=== PATIENT | female | born 1945 | race Two or more races ===

== ENCOUNTER 2018-08-07 18:31 | Inpatient (IN) | payer SELFPAY ==
[~2018-08-07] VITALS: Ht 160 cm; Wt 53.1 kg
--- NOTE | 2018-08-07 18:40 | NUR ---
PT BIB RA FROM HOME WITH A C/O HYPOGLYCEMIA. PT WAS AT HOME AND WAS FOUND PASSED OUT AND DIAPHORETIC. PT'S CLOTHES ARE WET. PT'S BS IN THE FIELD WAS BELOW 50 AND PT REC'D AN 18G TO THE LAC. PT REC'D D5W 250ML VIA IV AND THEN WAS NOTED TO BE HYPOTENSIVE AND REC'D 1 L NS. PT WAS PLACED ON THE MONITOR AND CONTINUOUS PULSE OX. PT IS 71/45. MD NOTIFIED AND NEW ORDERS WERE GIVEN.
--- NOTE | 2018-08-07 18:40 | NUR ---
PT IS OCCITAN SPEAKING ONLY.
[2018-08-07] MEDS ORDERED: IV NS 0.9% 1,000 ML BAG IV ONE ×2 (19:00→20:00)
[2018-08-07] MEDS ORDERED: ONDANSETRON HCL/PF 4 MG/2 ML VIAL IVP ONE (19:00)
--- NOTE | 2018-08-07 19:00 | NUR ---
ROSETTA, METAL SLITTER IS AT THE BEDSIDE FOR BLOOD DRAW.
[2018-08-07 19:11] LABS: BASOPHILS % (AUTO) 0.3 % (0.0-2.0); EOSINOPHILS % (AUTO) 0.1 % (0.0-6.0); HEMATOCRIT 31 % (33-45); HEMOGLOBIN 9.8 g/dL (11.5-14.8); LYMPHOCYTES # (AUTO) 0.5 /CMM (0.8-4.8); LYMPHOCYTES % (AUTO) 3.5 % (20.0-44.0); MEAN CORPUSCULAR HGB CONC 31 g/dl (31.0-36.0); MEAN CORPUSCULAR VOLUME 86 fL (82-100); MONOCYTES # (AUTO) 0.6 /CMM (0.1-1.30); MONOCYTES % (AUTO) 4.6 % (2.0-12.0); NEUTROPHILS # (AUTO) 11.8 /CMM (1.8-8.9); NEUTROPHILS % (AUTO) 91.5 % (43.0-81.0); PLATELET COUNT (AUTO) 214 /CMM (150-450); RED BLOOD CELL COUNT(AUTO) 3.62 MIL/uL (4.0-5.2); WHITE BLOOD COUNT (AUTO) 12.9 K/uL (4.3-11.0)
--- NOTE | 2018-08-07 19:18 | NUR ---
PT LEFT FOR CT VIA RNEY
--- NOTE | 2018-08-07 19:18 | NUR ---
REPORT GIVEN TO ED, CRYPTOGRAPHIC MACHINE OPERATOR FOR VIOLETA.
--- NOTE | 2018-08-07 19:20 | NUR ---
ASSUMED CARE. RECEIVED REPORT FROM AM SHIFT LILLIANA JOHNSON. PT RESTING QUIELTY, NO ACUTE DISTRESS NOTED, RESP EVEN AND UNLABORED. PT ON CARDIAC MONITORING, CONTINUOUS POX. PT FAMILY MEMBERS AT BEDSIDE. PT AND PT FAMILY AWARE OF HOSPITAL ADMISSION. WILL CONTINUE TO MONITOR PT CLOSELY.
[2018-08-07] MEDS ORDERED: ONDANSETRON HCL/PF 4 MG/2 ML VIAL ONE (19:21)
[2018-08-07 19:22] LABS: CALCIUM, SERUM 8.3 mg/dL (8.5-10.1); CARBON DIOXIDE 17 mmol/L (21-32); CHLORIDE 95 mmol/L (98-107); GLUCOSE 118 mg/dL (74-106); POTASSIUM 3.5 mmol/L (3.5-5.1); SODIUM SERUM 125 mmol/L (136-145); UREA NITROGEN, BLOOD 56 mg/dL (7-18)
[2018-08-07 19:27] LABS: ALANINE AMINOTRANSFERASE 20 U/L (12-78); ALBUMIN 2.1 g/dL (3.4-5.0); ALKALINE PHOSPHATASE 75 U/L (46-116); ASPARTATE AMINOTRANSFERASE 32 U/L (15-37); BILIRUBIN,DIRECT 0.2 mg/dL (0.0-0.2); BILIRUBIN,TOTAL 0.4 mg/dL (0.2-1.0); LIPASE 64 U/L (73-393)
[2018-08-07] MEDS ORDERED: DEXTROSE 50%-WATER 50 ML DISP.SYRIN ONE (20:03)
--- NOTE | 2018-08-07 20:04 | NUR ---
BS-59, ER MD ONEIL AWARE WITH ORDERS RECEIVED. WILL CARRY OUT ORDERS. PT FAMILY MEMBERS REMAINS AT BEDSIDE. Addendum: 08/07/18 at 2017 by ABY PT [email or web address] NO DENIES PAIN OR DISCOMFORT AT THIS TIME.
--- NOTE | 2018-08-07 20:10 | NUR ---
FOOD TRAY PROVIDED TO PT PER ER MD ORDER.
--- NOTE | 2018-08-07 20:25 | NUR ---
CALLED [facility], PAGED HERMINIA GONZALEZ
[2018-08-07] MEDS ORDERED: DEXTROSE 50%-WATER 50 ML DISP.SYRIN IV ONE (20:30)
--- NOTE | 2018-08-07 20:46 | NUR ---
ER SPOKE TO NICOLE GERONIMO REGARDING PT ADMISSION. WILL CALL FOR REPORT.
--- NOTE | 2018-08-07 21:13 | NUR ---
REPORT CALLED TO TELE 1 BRENT LEACH. WILL TRANSPORT PT VIA ACLS PROTOCOL.
[2018-08-07 21:15] VITALS: BP 104/67
--- NOTE | 2018-08-07 21:15 | NUR ---
ARMY RANGER NOTE PATIENT RECEIVED FROM ER WITH FAMILY AT BEDSIDE. PATIENT DENIES SOB/CHEST PAIN. PATIENT HAS 20 G LAC NO S/S OF INFEECTION/ INFILTRATION. BLOOD SUGAR CHECKED 106. PATIENT A/O X 3 WOLOF SPEAKING, BUT FORGETFUL. PATIENT NEEDS CONSISTENT ORIENTATION AND REMINDERS FOR ELIMINATION AND LOCATION. PATIENT NOTED TO HAVE GENERALIZED SCRATCHES ON HER ABDOMEN AND BACK AND A WOUND ON HER LEFT LABIA WITH REDNESS EXTENDING TO THE PERINEAL AREA. PATIENT DENIES PAIN/ DISCOMFORT AT THIS TIME, ONLY WHEN SHE AMBULATES DOES SHE FEEL PAIN IN THE PERINEAL REGION RELATED TO HER WOUND. FAMILY STATES SHE WAS CURRENTLY RECEIVING ANTIBIOTIC FOR THE CELLULITIS THERE. PATIENT AND FAMILY ORIENTED TO UNIT AND USE OF CALL LIGHT. PLAN OF CARE AND PATIENT GOALS DISCUSSED WITH FAMILY AND PATIENT. SAFETY PRECAUTIONS IN PLACE, SIDE RAILS UP X 2 BED ALARM ON. RN WILL CONTINUE TO MONITOR.
[2018-08-07] MEDS ORDERED: ACETAMINOPHEN 325 MG TABLET PO PRN (21:30)
[2018-08-07] MEDS ORDERED: Z GUARD REMEDY 2 OZ OINT TP PRN (21:30)
[2018-08-07] MEDS ORDERED: ONDANSETRON HCL/PF 4 MG/2 ML VIAL IVP PRN (21:30)
[2018-08-07] MEDS ORDERED: IV NS 0.9% 1,000 ML IV PRN (21:30)
[2018-08-07] MEDS ORDERED: MAGNESIUM HYDROXIDE 30 ML UDC PO PRN (21:30)
[2018-08-07] MEDS ORDERED: DEXTROSE 50%-WATER 50 ML DISP.SYRIN IV PRN (21:30)
[2018-08-07] MEDS ORDERED: ZOLPIDEM TARTRATE 5 MG TABLET PO PRN (21:30)
[2018-08-07] MEDS ORDERED: CIPR-262 PO (21:47)
[2018-08-07] MEDS ORDERED: GLIP10TA11 PO (21:49)
[2018-08-07] MEDS ORDERED: HYDR-4384 PO (21:56)
[2018-08-07] MEDS ORDERED: METF-442 PO (21:56)
[2018-08-07] MEDS ORDERED: ONDA4TAB5 PO (21:56)
[2018-08-07] MEDS ORDERED: LEVO100T9 PO (21:56)
[2018-08-07] MEDS ORDERED: METR500T PO (21:56)
[2018-08-07] MEDS ORDERED: ACET1TAB23 PO (21:56)
[2018-08-07] MEDS ORDERED: LISI40TA4 PO (21:57)
[2018-08-07] MEDS: BLOOD SUGAR DIAGNOSTIC 1 EACH STRIP IN SCH (22:09)
[2018-08-08] VITALS (8 sets, daily range): BP systolic 60–132; BP diastolic 46–66
--- NOTE | 2018-08-08 00:30 | NUR ---
MANAGER COMPETITIVE INTELLIGENCE NOTE PATIENT SEEN BY HERMINIA, PATIENT REPORTED CHEST PAIN, STAT TROP ORDERED. TRAFFIC I MANAGER SAW PATIENTS CELLUSLITIS ON LEFT LABIAL FOLD/ GLUTEAL FOLD ORDERED BROAD SPECTRUM ABX.
[2018-08-08] MEDS ORDERED: VANCOMYCIN 1 GM VIAL ONE (01:22)
[2018-08-08] MEDS ORDERED: VANCOMYCIN 0.75 GM in IV NS 0.9% 250 ML IV ONE (01:30)
[2018-08-08] MEDS ORDERED: PIPERACILLIN /TAZOBACTAM 3.375 G in IV D5W 50 ML IV ONE (02:00)
[2018-08-08] MEDS ORDERED: PIPERACILLIN /TAZOBACTAM 3.375 G VIAL IV ONE (02:43)
--- NOTE | 2018-08-08 05:00 | NUR ---
LAST DIPPER NOTE PATIENT NOTED TO HAVE LOW BP. SKIN DIAPHORETIC. PATIENT A/O X 3. NO CHANGE IN LOC. BLOOD SUGAR CHECKED FIRST 21 SECOND TO RECHECK WAS 23. D10% IN 250 ML BOLUS GIVEN. LISA HOPE NOTIFIED, ORDERED TO D/C NS AND CONTINUE WITH D5 0.9% NS AT 75 ML/HR. Addendum: 08/08/18 at 0541 by HANY SEGURA RN Amended: Links added.
--- NOTE | 2018-08-08 05:30 | NUR ---
PROFESSOR OF FORESTRY NOTE COMPLETED D10 BOLUS, WILL RECHECK BLOOD SUGAR AT 0604. PATIENT ENCOURAGED TO EAT AND SNACK THROUGHOUT THE DAY. PATIENT REMAINS A/O X 3, BUT EXTREMELY FORGETFUL
[2018-08-08] MEDS ORDERED: IV D5/ 0.9% NACL 1,000 ML IV PRN (06:00)
[2018-08-08] MEDS ORDERED: PIPERACILLIN /TAZOBACTAM 3.375 G in IV D5W 50 ML IV SCH (06:00)
--- NOTE | 2018-08-08 06:00 | NUR ---
0600 RECHECKED BLOOD GLUCOSE AND OBTAINED 138MG/DL. PATIENT REMAINS AWAKE AND VERBALLY RESPONSIVE. NO S/S OF HYPO/HYPERGLYCEMIA NOTED. AM CARE RENDERED, LARGE BM SOFT IN CONSISTENCY. GOOD PERICARE DONE. TURNED AND REPOSITIONED, CALL LIGHT PLACED WITHIN REACH.
--- NOTE | 2018-08-08 06:10 | NUR ---
0610 RE CHECKED BP AND OBTAINED 74/47. PATIENT ASYMPTOMATIC. IVF INFUSING ORDERED TO RFA WITH NO SIGNS OF INFILTRATION NOTED. WILL CONT. TO MONITOR CLOSELY.
--- NOTE | 2018-08-08 06:25 | NUR ---
CONCESSION CASHIER NOTE BLOOD PRESSURE 79/41. PATIENT REMAINS ASYMPTOMATIC. SKIN WARM AND DRY TO TOUCH. PATIENT A/O X 3. PATIENT HAS NO CHANGE IN LOC
--- NOTE | 2018-08-08 06:41 | NUR ---
CHILD DAY CARE TEACHER NOTE RECHECKED BLOOD PRESSURE, PATIENT REMAINS 75/41. PATIENT STILL A/O X 3. NO CHANGE IN LOC, RECOMMENDED TO BRAZING MACHINE OPERATOR HELPER TO CHECK FOR LACTIC ACID TO RULE OUT SEPTIC SHOCK.
--- NOTE | 2018-08-08 06:57 | NUR ---
RIGGER SUPERVISOR NOTE PATIENT STILL HYPOTENSIVE. NO CHANGE IN LOC. NO RESPONSE FROM LISA HOPE AT THIS POINT. PATIENT BLOOD PRESSURE 69/43. PATIENT PLACED IN MODIFIED [place]UNDELENBERG POSITION. RN WILL ENDORSE TO [place] FOR VIOLETA. Addendum: 08/08/18 at 0716 by HANY SEGURA RN RECHECKED BP IN MODIFIED [place]EN[place] PATIENT BP 82/54. PATIENT STILL ASYMPTOMATIC.
--- NOTE | 2018-08-08 07:15 | NUR ---
SURGICAL ATTENDANT OPENING RECEIVED PT. IN MODIFIED [place], BP 82/54. NO CALLS/TEXTS FROM NICOLE HOPE WATERPROOFING MACHINE OPERATOR THIS AM. PATIENT AWAKE, ALERT AND ORIENTED X3. NO ACUTE DISTRESS OR SOB NOTED. IV SITES C/D/I, R FA 22G INFUSING D5 NS @75mL/HR PER ORDER AND L AC 20G SALINE LOCKED. BED LOCKED, LOW, SIDE RAILS UPX2, CALL LIGHT WITHIN REACH. WILL CONTINUE TO MONITOR.
[2018-08-08 07:30] LABS: BASOPHILS % (AUTO) 0.2 % (0.0-2.0); EOSINOPHILS % (AUTO) 0.1 % (0.0-6.0); HEMATOCRIT 30 % (33-45); HEMOGLOBIN 9.4 g/dL (11.5-14.8); LYMPHOCYTES # (AUTO) 0.6 /CMM (0.8-4.8); LYMPHOCYTES % (AUTO) 4.8 % (20.0-44.0); MEAN CORPUSCULAR HGB CONC 32 g/dl (31.0-36.0); MEAN CORPUSCULAR VOLUME 85 fL (82-100); MONOCYTES # (AUTO) 0.6 /CMM (0.1-1.30); MONOCYTES % (AUTO) 4.8 % (2.0-12.0); NEUTROPHILS # (AUTO) 10.6 /CMM (1.8-8.9); NEUTROPHILS % (AUTO) 90.1 % (43.0-81.0); PLATELET COUNT (AUTO) 257 /CMM (150-450); RED BLOOD CELL COUNT(AUTO) 3.46 MIL/uL (4.0-5.2); WHITE BLOOD COUNT (AUTO) 11.8 K/uL (4.3-11.0)
[2018-08-08 07:46] LABS: CHOLESTEROL 71 mg/dL (<200); LDL 29 mg/dL (0-99); TRIGLYCERIDES 141 mg/dL (30-150)
[2018-08-08 07:47] LABS: CALCIUM, SERUM 8.3 mg/dL (8.5-10.1); CARBON DIOXIDE 19 mmol/L (21-32); CHLORIDE 100 mmol/L (98-107); CREATININE 1.6 mg/dL (0.6-1.3); GLUCOSE 125 mg/dL (74-106); MAGNESIUM 1.6 mg/dL (1.8-2.4); PHOSPHORUS 2.6 mg/dL (2.5-4.9); POTASSIUM 3.5 mmol/L (3.5-5.1); SODIUM SERUM 132 mmol/L (136-145); UREA NITROGEN, BLOOD 39 mg/dL (7-18)
[2018-08-08 07:49] LABS: HDL CHOLESTEROL < 10 mg/dL (40-60)
[2018-08-08] MEDS ORDERED: FEE PK DOSING 1 MIN EA MC ONE ×2 (07:52→12:13)
[2018-08-08] MEDS: LEVOTHYROXINE SODIUM 100 MCG TABLET PO SCH (07:55)
[2018-08-08] MEDS: BLOOD SUGAR DIAGNOSTIC 1 EACH STRIP IN SCH ×4 (07:55→21:38)
[2018-08-08 08:44] LABS: BAND % (MANUAL) 2 % (0.0-5.0); LYMPHOCYTES % (MANUAL) 1 % (16-48); MONOCYTES % (MANUAL) 5 % (0-11.0); NEUTROPHILS % (MANUAL) 92 (42-76)
[2018-08-08] MEDS ORDERED: Magnesium 1GM/D5W 100ML PREMIX 100 ML IV SCH (10:00)
--- NOTE | 2018-08-08 10:31 | NUR ---
WOUND CARE CONSULT: PT PRESENTS WITH REDNESS, EDEMA AND INDURATION TO LEFT PERINEAL AREA/LABIA WHICH EXTENDS TO LEFT BUTTOCK WITH NECROTIC AREA TO LEFT BUTTOCK, PRESENT ON ADMISSION. PT STATES THAT LEFT BUTTOCK IS VERY PAINFUL. DR BERNARDO NOTIFIED AND WILL EXAMINE PT. DEFER TO DNP FOR POSSIBLE SURGICAL CONSULT. PT ABLE TO ASSIST WITH TURNING AND REPOSITIONING IN BED. WILL SEE PRN.
[2018-08-08] MEDS ORDERED: VANCOMYCIN 0.75 GM in IV D5W 250 ML IV SCH (13:00)
--- NOTE | 2018-08-08 13:10 | NUR ---
RECEIVED CRITICAL LAB RESULT LACTIC ACID 3.2 XIANG FROM LAB, JANETTE BERNARDO PAGED VIA [facility]
--- NOTE | 2018-08-08 13:24 | NUR ---
JANETTE BERNARDO CALLED BACK, AWARE OF LACTIC ACID LEVEL. PT. IS GOING FOR SURGERY AT 1400.
[2018-08-08] MEDS ORDERED: ANESTHESIA TRAY IN PYXIS 1 EA TRAY MC ONE (13:49)
[2018-08-08] MEDS ORDERED: FAMOTIDINE/PF INJ 20 MG/2 ML VIAL IV ONE (14:30)
--- NOTE | 2018-08-08 14:35 | NUR ---
SURGERY RNs @ BEDSIDE. VITALS STABLE. ADVANCED DIRECTIVE REGARDING BLOOD TRANSFUSION REFUSAL ATTACHED TO BLOOD TRANSFUSION CONSENT FORM. CONSENT FOR SURGERY AND ANESTHESIA SIGNED BY DAUGHTER. Addendum: 08/08/18 at 1531 by MARIA ESTHER BOLTON RN PATIENT HAS BEEN NPO SINCE 0800 PER DAUGHTER WHO WAS AT BEDSIDE.
[2018-08-08] MEDS ORDERED: HYDROMORPHONE INJ 2 MG/ML DISP.SYRIN ONE (15:11)
[2018-08-08] MEDS ORDERED: BUPIVACAINE 0.25% 75 MG/30 ML VIAL ONE (15:11)
[2018-08-08] MEDS ORDERED: BUPIVACAINE MPF 0.5% W/EPI INJ 30 ML VIAL ONE (15:12)
[2018-08-08] MEDS ORDERED: DEXTROSE 10% IN WATER 250 ML BAG IV ONE (15:12)
--- NOTE | 2018-08-08 16:14 | NUR ---
PT. ARRIVED BACK TO UNIT POST OP. NO ACUTE DISTRESS OR SOB NOTED. AWAKE, ALERT, ORIENTED X2. TEMP 98.0, BP 120/66, HR 82, SPO2 97%, RR 12. WILL CONTINUE TO MONITOR Addendum: 08/08/18 at 1617 by MARIA ESTHER BOLTON RN NO BLEEDING NOTED FROM SURGICAL SITE.
--- NOTE | 2018-08-08 16:17 | NUR ---
LAB AT BEDSIDE TO REDRAW LACTIC ACID, PT. WAS IN OR
[2018-08-08] MEDS: PIPERACILLIN /TAZOBACTAM 3.375 G in IV D5W 100 ML IV SCH (16:31)
--- NOTE | 2018-08-08 19:30 | NUR ---
RN OPEN NOTES RECEIVED PATIENT AWAKE IN BED WITH FAMILY AT BEDSIDE. A/OX2. NO SIGNS OF DISTRESS OR DISCOMFORT. BREATHING EVEN AND UNLABORED. IV ACCESS IN RFA WITH ZOSYN INFUSING AND LFA WITH NS INFUSING, PATENT AND INTACT, NO SIGNS OF REDNESS OR INFILTRATION. PATIENT STATES PAIN IS TOLERABLE AT THIS TIME. DRESSING ON BUTTOCKS C/D/I. BED IN LOW LOCKED POSITION WITH SIDE RAILS X2. CALL LIGHT WITHIN REACH. WILL CONTINUE TO MONITOR.
--- NOTE | 2018-08-08 19:41 | NUR ---
BS 206, NO INSULIN GIVEN DUE TO POOR PO INTAKE AND HX BS DROPPING FAST.
[2018-08-08] MEDS ORDERED: IV NS 0.9% 1,000 ML BAG IV PRN (20:00)
[2018-08-08] MEDS: INSULIN REGULAR, HUMAN 100 UNIT/ML 3 ML VIAL SQ PRN (21:41)
[2018-08-08] MEDS: HYDROCODONE/APAP 5/325MG 1 EACH TABLET PO PRN (22:06)
[2018-08-09] MEDS: VANCOMYCIN 0.75 GM in IV NS 0.9% 250 ML IV SCH (01:00)
[2018-08-09] MEDS: IV NS 0.9% 1,000 ML IV PRN ×3 (01:01→20:00)
[2018-08-09] MEDS: PIPERACILLIN /TAZOBACTAM 3.375 G in IV D5W 100 ML IV SCH ×3 (02:35→22:06)
[2018-08-09 04:00] VITALS: BP 141/63
[2018-08-09] MEDS: HYDROCODONE/APAP 5/325MG 1 EACH TABLET PO PRN ×3 (04:14→23:04)
[2018-08-09 05:12] LABS: BILIRUBIN,URINE NEGATIVE (NEGATIVE); BLOOD, URINE 3+ Ery/uL (NEGATIVE); COLOR,URINE YELLOW (YELLOW); KETONES,URINE NEGATIVE (NEGATIVE); LEUKOCYTE ESTERASE ,URINE 2+ (NEGATIVE); NITRITE, URINE NEGATIVE (NEGATIVE); PH,URINE 5.5 (5.0-8.0); PROTEIN,URINE 1+ mg/dl (NEGATIVE); UGLUCOSE 1+ mg/dL (NEGATIVE); UROBILINOGEN,URINE 0.2 EU/dL (0.2)
[2018-08-09 05:15] LABS: APPEARANCE,URINE SLIGHTLY CLOUDY (CLEAR)
[2018-08-09 05:30] LABS: BACTERIA,URINE None seen /HPF (None Seen); SQUAMOUS EPITHELIAL CELL,UR Few /HPF (None Seen); URIC ACID CRYSTALS,URINE Many /HPF (None Seen)
[2018-08-09 05:31] LABS: MUCUS,URINE Few /LPF (None Seen); URINE AMORPHOUS URATE Moderate /HPF (None Seen)
[2018-08-09] MEDS: BLOOD SUGAR DIAGNOSTIC 1 EACH STRIP IN SCH ×4 (06:27→22:00)
[2018-08-09] MEDS: INSULIN REGULAR, HUMAN 100 UNIT/ML 3 ML VIAL SQ PRN ×3 (06:29→23:23)
--- NOTE | 2018-08-09 07:30 | NUR ---
RN CLOSING NOTES PATIENT AWAKE SITTING IN CHAIR WITH SITTER AT BEDSIDE. A/OX1-2 WITH PERIODS OF FORGETFULNESS AND CONFUSION. NO SIGNS OF DISTRESS OR DISCOMFORT. BREATHING EVEN AND UNLABORED. IV ACCESS IN LFA WITH NS INFUSING, PATENT AND INTACT, NO SIGNS OF REDNESS OR INFILTRATION. PATIENT DENIES ANY PAIN AT THIS TIME. DRESSING ON BUTTOCKS C/D/I. ALL NEEDS MET. NO SIGNIFICANT CHANGES THROUGH THE NIGHT. BED IN LOW LOCKED POSITION WITH SIDE RAILS X2. CALL LIGHT WITHIN REACH. ENDORSED TO AM SHIFT FOR VIOLETA.
[2018-08-09] MEDS: LEVOTHYROXINE SODIUM 100 MCG TABLET PO SCH (08:35)
[2018-08-09 09:54] LABS: BASOPHILS % (AUTO) 0.2 % (0.0-2.0); EOSINOPHILS % (AUTO) 0.1 % (0.0-6.0); HEMATOCRIT 30 % (33-45); HEMOGLOBIN 9.8 g/dL (11.5-14.8); LYMPHOCYTES % (AUTO) 9.4 % (20.0-44.0); MEAN CORPUSCULAR HGB CONC 32 g/dl (31.0-36.0); MEAN CORPUSCULAR VOLUME 86 fL (82-100); MONOCYTES # (AUTO) 0.9 /CMM (0.1-1.30); MONOCYTES % (AUTO) 8.5 % (2.0-12.0); NEUTROPHILS % (AUTO) 81.8 % (43.0-81.0); PLATELET COUNT (AUTO) 289 /CMM (150-450); RED BLOOD CELL COUNT(AUTO) 3.53 MIL/uL (4.0-5.2)
[2018-08-09 10:10] LABS: CALCIUM, SERUM 8.6 mg/dL (8.5-10.1); CARBON DIOXIDE 24 mmol/L (21-32); CHLORIDE 103 mmol/L (98-107); CREATININE 1.3 mg/dL (0.6-1.3); GLUCOSE 199 mg/dL (74-106); PHOSPHORUS 1.7 mg/dL (2.5-4.9); POTASSIUM 3.4 mmol/L (3.5-5.1); SODIUM SERUM 137 mmol/L (136-145); UREA NITROGEN, BLOOD 22 mg/dL (7-18)
[2018-08-09] MEDS: DAKINS QUARTER STRENGTH (0.125%) 480 ML BOTTLE TOP SCH (10:33)
--- NOTE | 2018-08-09 11:30 | NUR ---
WOUND CARE COMPLETED. POST DEBRIDGEMENT PICTURE TAKEN AND PLACED IN CHART. OLD KERLIX SATURATED WITH BROWNISH FLUID. PATIENT MEDICATED WITH NORCO PRIOR TO DRESSING CHANGE. TOLERATED WELL. PLACED COPIOUS AMOUNTS OF TAPE TO PREVENT URINE SATURATION OF DRESSING. WILL MONITOR.
[2018-08-09 12:27] LABS: BAND % (MANUAL) 2 % (0.0-5.0); LYMPHOCYTES % (MANUAL) 15 % (16-48); MONOCYTES % (MANUAL) 10 % (0-11.0); MYELOCYTES % 1 % (0-0); NEUTROPHILS % (MANUAL) 72 (42-76)
[2018-08-09] MEDS ORDERED: K PHOS NEUTRAL 250 MG TABLET PO ONE (12:30)
--- NOTE | 2018-08-09 14:22 | NUR ---
SUGGESTED ARMENDARIZ TO JANETTE BERNARDO FLOW TRADER, TO PREVENT SATURATION OF DRESSING WITH URINE. NO ORDER AT THIS TIME FOR ARMENDARIZ INSERTION.
--- NOTE | 2018-08-09 15:00 | NUR ---
NO SATURATION VISUALIZED ON WOUND DRESSING. WILL CONTINUE TO MONITOR.
[2018-08-09 20:00] VITALS: BP 91/58
[2018-08-09] MEDS: LACTOBACILLUS RHAMNOSUS GG 1 EACH CAP.SPRINK PO SCH (22:05)
[2018-08-10] VITALS: BP 132/59
[2018-08-10] MEDS: VANCOMYCIN 0.75 GM in IV NS 0.9% 250 ML IV SCH (01:36)
--- NOTE | 2018-08-10 02:22 | NUR ---
RN NOTES PATIENT CONFUSED; GETTING IN AND OUT OF BED; HIGH RISK FOR FALL; WAS TRANSFERRED TO A SEMI PRIVATE ROOM WITH ANOTHER SITTER PATIENT. Dominga HOPE NP CHIEF INFORMATION OFFICER FOR [facility] NOTIFIED; SITTER ORDER OBTAINED. KEPT SITTER AT BEDSIDE Addendum: 08/10/18 at 0400 by LUNA ANGELA RN 0310 SITTER CALLED; PATIENT PULLED OUT IV; BED ALARM WENT OFF; PATIENT OUT OF BED; CONFUSED BUT NOT COMBATIVE. REORIENTATION DONE. ASSISTED TO BEDSIDE COMMODE; AM CARE RENDERED. ASSISTED BACK TO BED. INSERTED G20 TO RFA WITH GOOD BLOOD RETURN. FLUSHED WITH SALINE. PROCEDURE WELL TOLERATED.
[2018-08-10 04:00] VITALS: BP 90/48
[2018-08-10] MEDS: PIPERACILLIN /TAZOBACTAM 3.375 G in IV D5W 100 ML IV SCH ×3 (05:02→20:30)
[2018-08-10] MEDS: IV NS 0.9% 1,000 ML IV PRN (06:17)
[2018-08-10 06:41] LABS: BASOPHILS % (AUTO) 0.1 % (0.0-2.0); EOSINOPHILS % (AUTO) 0.7 % (0.0-6.0); HEMATOCRIT 26 % (33-45); HEMOGLOBIN 8.5 g/dL (11.5-14.8); LYMPHOCYTES % (AUTO) 10.5 % (20.0-44.0); MEAN CORPUSCULAR HGB CONC 33 g/dl (31.0-36.0); MEAN CORPUSCULAR VOLUME 86 fL (82-100); MONOCYTES # (AUTO) 0.5 /CMM (0.1-1.30); MONOCYTES % (AUTO) 5.2 % (2.0-12.0); NEUTROPHILS # (AUTO) 8.2 /CMM (1.8-8.9); NEUTROPHILS % (AUTO) 83.5 % (43.0-81.0); PLATELET COUNT (AUTO) 278 /CMM (150-450); RED BLOOD CELL COUNT(AUTO) 3.06 MIL/uL (4.0-5.2); WHITE BLOOD COUNT (AUTO) 9.8 K/uL (4.3-11.0)
[2018-08-10 06:42] LABS: CARBON DIOXIDE 23 mmol/L (21-32); CHLORIDE 105 mmol/L (98-107); CREATININE 0.9 mg/dL (0.6-1.3); GLUCOSE 202 mg/dL (74-106); MAGNESIUM 1.4 mg/dL (1.8-2.4); PHOSPHORUS 2.3 mg/dL (2.5-4.9); POTASSIUM 3.3 mmol/L (3.5-5.1); SODIUM SERUM 139 mmol/L (136-145); UREA NITROGEN, BLOOD 17 mg/dL (7-18)
--- NOTE | 2018-08-10 07:30 | NUR ---
RN OPENING NOTES RECEIVED PATIENT IN BED SLEEPING COMFORTABLY. EASILY AROUSABLE. ABLE TO MAKE NEEDS KNOWN. CROATIAN SPEAKING. NO PAIN OR ACUTE DISTRESS AT THIS TIME. RESPIRATION EVEN AND UNLABORED. SKIN IS DRY WARM TO TOUCH. PATIENT NOTED WITH IV ACCESS ON RFA PATENT AND INTACT, NO SIGNS OR INFECTION OR INFILTRATION. FLUSHING WELL. ALL NEEDS ANTICIPATED. KEPT CLEAN AND DRY. CALL LIGHT WITHIN REACHED. BED IN LOW LOCKED POSITION WITH SIDE RAILS X2. CALL LIGHT WITHIN REACH. PLAN OF CARE DISCUSSED. WILL CONTINUE TO MONITOR CLOSELY.
[2018-08-10] MEDS: LEVOTHYROXINE SODIUM 100 MCG TABLET PO SCH (07:53)
[2018-08-10] MEDS: BLOOD SUGAR DIAGNOSTIC 1 EACH STRIP IN SCH ×4 (07:53→22:51)
[2018-08-10 08:00] VITALS: BP 138/74
[2018-08-10] MEDS: LACTOBACILLUS RHAMNOSUS GG 1 EACH CAP.SPRINK PO SCH ×2 (08:57→17:02)
[2018-08-10] MEDS: DAKINS QUARTER STRENGTH (0.125%) 480 ML BOTTLE TOP SCH (08:59)
[2018-08-10] MEDS: INSULIN REGULAR, HUMAN 100 UNIT/ML 3 ML VIAL SQ PRN ×4 (09:04→22:50)
[2018-08-10 09:37] LABS: BAND % (MANUAL) 4 % (0.0-5.0); EOSINOPHILS % (MANUAL) 1 % (0-4); LYMPHOCYTES % (MANUAL) 9 % (16-48); MONOCYTES % (MANUAL) 2 % (0-11.0); MYELOCYTES % 1 % (0-0); NEUTROPHILS % (MANUAL) 83 (42-76)
[2018-08-10] MEDS ORDERED: POTASSIUM CHLORIDE 20 MEQ TAB.PRT.SR PO SCH (10:30)
[2018-08-10] MEDS: Magnesium 1GM/D5W 100ML PREMIX 100 ML IV SCH ×4 (10:57→14:18)
[2018-08-10] MEDS ORDERED: K PHOS NEUTRAL 250 MG TABLET PO ONE (11:00)
[2018-08-10 16:00] VITALS: BP 149/69
--- NOTE | 2018-08-10 19:07 | NUR ---
RN CLOSING NOTES PATIENT REMAINS IN STABLE CONDITION DURING THE SHIFT. PROVIDED COMFORT AND SAFETY. FAMILY MEMBERS AT BEDSIDE. NO ACUTE DISTRESS AT THIS TIME. RESPIRATION EVEN AND UNLABORED. SKIN IS DRY WARM TO TOUCH. PATIENT WAS ABLE TO TOLERATE MEALS AND MEDS WELL. NO ADVERSE REACTIONS AT THIS TIME. IV ACCESS ON RFA INTACT AND PATENT. NO S/S OR INFECTION OR INFILTRATION. FLUSHING WELL. TREATMENT WAS ALSO DONE ON THE LEFT BUTTOCK SURGICAL WOUND THROUGHOUT THE SHIFT. ALL NEEDS ANTICIPATED. KEPT CLEAN AND DRY. CALL LIGHT WITHIN REACHED. PLAN OF CARE DISCUSSED. WILL CONTINUE TO MONITOR. ENDORSED TO PM NURSE FOR VIOLETA.
--- NOTE | 2018-08-10 19:40 | NUR ---
RN INITIAL NOTES: RECEIVED REPORT FROM SANTOS KENNEDY. PT IN BED, AWAKE, A/O X1-2 SINHALA SPEAKING, MET WITH FAMILY AT BED SIDE. DISCUSSED PLAN OF CARE, ANSWERED ALL CONCERNS. PT HAS IV ACCESS ON RFA PATENT AND FLUSHING WELL, INFUSING WITH NS AT 75ML/HR. PT S/P I&D AND LEFT PERINEAL AND DAYRON ANORECTAL ABSCESS 08/[address] SINHA. DRESSING IN PLACED. PT ABLE TO TURN AND REPOSITION BY HERSELF, AMBULATES WITH ASSISTANCE, OUT OF BED TO COMMODE. SITTER AT BED SIDE. SAFETY PRECAUTIONS FOR FALL INITIATED, CALL LIGHT IN REACH, WILL CONTINUE MONITORING PT.
[2018-08-10 20:00] VITALS: BP 106/59
--- NOTE | 2018-08-10 20:20 | NUR ---
WOUND CARE: WOUND CARE AND DRESSING CHANGE PROVIDED TO PT
--- NOTE | 2018-08-10 20:25 | NUR ---
RN NOTES: MET WITH FAMILY AT BED SIDE, DISCUSSED OPLAMN OF CARE, AND FAMILY WISHES ARMENDARIZ CATHETER TO PT BECAUSE EVERYTIME PT URINATE, URINE GOES INSIDE THE WOUND, AND THEY'RE AFRAID IT WILL GET IRRITATED AGAIN AND INFECTED.
--- NOTE | 2018-08-10 20:51 | NUR ---
RN NOTES: PER ALUMNI RELATIONS MANAGER AMMY RIVERA FOR ARMENDARIZ CATHETER
--- NOTE | 2018-08-10 21:00 | NUR ---
ARMENDARIZ CATH INSERTION: EXPLAINED TO PT ABOUT THE PROCEDURE. ARMENDARIZ CATHETER INSERTED USING FR 16, VIA ASEPTIC TECHNIQUE. PT TOLERATED PROCEDURE WELL, URINE OUTPUT NOTED
[2018-08-10] MEDS: VANCOMYCIN 1 GM in IV D5W 250 ML IV SCH (22:51)
[2018-08-11] MEDS: IV NS 0.9% 1,000 ML IV PRN ×2 (01:22→21:55)
--- NOTE | 2018-08-11 01:34 | NUR ---
RN NOTES: PT SLEEPING, APPEARS CALM AND COMFORTABLE, NO FACIAL GRIMACE NOTED
[2018-08-11 04:00] VITALS: BP 151/69
[2018-08-11] MEDS: PIPERACILLIN /TAZOBACTAM 3.375 G in IV D5W 100 ML IV SCH ×3 (04:29→22:58)
[2018-08-11 06:00] VITALS: BP 137/74
--- NOTE | 2018-08-11 06:35 | NUR ---
RN CLOSING NOTES: PT IN BED, REMAINS A/O X1-2 ON RA RESPIRATION EVEN AND UNLABORED. IV ACCESS REMAINS PATENT AND FLUSHING WELL, INFUSING WITH NS AT 75ML/HR. WOUND DRESSING REMAINS C/D/I, NO ACTIVE BLEEDING NOTED. ARMENDARIZ CATHETER REMAINS IN PLACED, BAG EMPTIED BY HEBREW TEACHER. PT DENIES ANY PAIN OR DISCOMFORT AT THIS TIME. VS REMAINS STABLE, NEEDS ATTENDED. SAFETY PRECAUTIONS FOR FALL INITIATED, CALL LIGHT IN REACH, WILL ENDORSE TO DAY RN FOR CONTINUITY OF CARE.
[2018-08-11 07:16] LABS: ALANINE AMINOTRANSFERASE 22 U/L (12-78); ALBUMIN 1.8 g/dL (3.4-5.0); ALKALINE PHOSPHATASE 60 U/L (46-116); ASPARTATE AMINOTRANSFERASE 19 U/L (15-37); BILIRUBIN,TOTAL 0.4 mg/dL (0.2-1.0); CALCIUM, SERUM 7.9 mg/dL (8.5-10.1); CARBON DIOXIDE 26 mmol/L (21-32); CHLORIDE 105 mmol/L (98-107); CREATININE 0.8 mg/dL (0.6-1.3); GLUCOSE 186 mg/dL (74-106); MAGNESIUM 1.7 mg/dL (1.8-2.4); PHOSPHORUS 2.9 mg/dL (2.5-4.9); POTASSIUM 3.2 mmol/L (3.5-5.1); SODIUM SERUM 140 mmol/L (136-145); TOTAL PROTEIN, SERUM 5.1 g/dL (6.4-8.2); UREA NITROGEN, BLOOD 9 mg/dL (7-18)
[2018-08-11 08:00] VITALS: BP 133/68
[2018-08-11] MEDS: INSULIN REGULAR, HUMAN 100 UNIT/ML 3 ML VIAL SQ PRN ×4 (08:28→22:10)
[2018-08-11] MEDS: LEVOTHYROXINE SODIUM 100 MCG TABLET PO SCH (08:29)
[2018-08-11] MEDS: LACTOBACILLUS RHAMNOSUS GG 1 EACH CAP.SPRINK PO SCH ×2 (08:29→18:08)
[2018-08-11 09:00] VITALS: BP 133/68
[2018-08-11] MEDS: POTASSIUM CHLORIDE 20 MEQ TAB.PRT.SR PO SCH ×2 (11:40→13:40)
[2018-08-11] MEDS: Magnesium 1GM/D5W 100ML PREMIX 100 ML IV SCH ×2 (11:40→12:10)
[2018-08-11] MEDS: BLOOD SUGAR DIAGNOSTIC 1 EACH STRIP IN SCH ×3 (11:42→21:55)
[2018-08-11 16:00] VITALS: BP 105/73
[2018-08-11] MEDS: DAKINS QUARTER STRENGTH (0.125%) 480 ML BOTTLE TOP SCH (17:19)
--- NOTE | 2018-08-11 17:19 | NUR ---
WOUND CARE COMPLETED. PATIENT TOLERATED WELL.
--- NOTE | 2018-08-11 19:40 | NUR ---
MS RN NOTE: PATIENT RESTING IN BED, NO ACUTE DISTRESS NOTED, FAMILY AT BEDSIDE. BREATHING EVEN AND UNLABORED, NO SOB NOTED. IV TO RFA IN PLACE, INFUSING NS AT 75 ML/HR. NO S/S OF HYPER/HYPOGLYCEMIA NOTED. BED LOCKED AND IN LOWEST POSITION, CALL LIGHT IN REACH. WILL CONTINUE TO MONITOR.
[2018-08-11] MEDS: VANCOMYCIN 1 GM in IV D5W 250 ML IV SCH (21:55)
--- NOTE | 2018-08-11 22:00 | NUR ---
MS RN NOTE: PATIENT BLOOD SUGAR LEVEL 142MG/DL, PATIENT TO RECEIVE 2 UNITS OF INSULIN PER SLIDING SCALE, NO S/S OF HYPER/HYPOGLYCEMIA NOTED. WILL CONTINUE TO MONITOR.
[2018-08-11 22:30] VITALS: BP 137/64
[2018-08-12] MEDS: PIPERACILLIN /TAZOBACTAM 3.375 G in IV D5W 100 ML IV SCH ×2 (05:13→12:06)
[2018-08-12] MEDS: INSULIN REGULAR, HUMAN 100 UNIT/ML 3 ML VIAL SQ PRN ×4 (06:07→21:37)
--- NOTE | 2018-08-12 06:20 | NUR ---
MS RN NOTE: PATIENT RESTING IN BED, NO ACUTE DISTRESS NOTED. BREATHING EVEN AND UNLABORED, NO SOB NOTED. IV TO RFA IN PLACE, INFUSING NS AT 75 ML/HR. PATIENT BLOOD SUGAR LEVEL 178MG/DL, TO RECEIVE 3 UNITS OF INSULIN PER SLIDING SCALE. NO S/S OF HYPER/HYPOGLYCEMIA NOTED. BED LOCKED AND IN LOWEST POSITION, CALL LIGHT IN REACH. WILL ENDORSE TO DAY NURSE TO CONTINUE WITH PLAN OF CARE.
[2018-08-12] MEDS: BLOOD SUGAR DIAGNOSTIC 1 EACH STRIP IN SCH ×4 (06:42→21:36)
--- NOTE | 2018-08-12 07:05 | NUR ---
MS RN OPENING NOTES RECEIVED PT LYING ON BED,.ALERT/ORIENTED X2 WITH FORGETFUL,TELUGU SPEAKING PT.ON ROOM AIR,TOLERATING WELL.NO SOB AND ACUTE DISTRESS NOTED.BED SIDE SITTER IS PRESENT FALL RISK PT.IV LINE IS ON RIGHT FA G20 WITH IV FLUID NS @75CC/HR IS RUNNING.SITE IS CLEAN,DRY AND INTACT.SAFETY IS MAINTAINED AT ALL TIMES.BED IS IN LOW POSITION AND LOCKED.CALL LIGHT IS WITHIN REACH.WILL CONTINUE TO MONITOR THE PT CLOSELY.
[2018-08-12 07:18] LABS: BASOPHILS % (AUTO) 0.3 % (0.0-2.0); EOSINOPHILS % (AUTO) 2.4 % (0.0-6.0); HEMATOCRIT 27 % (33-45); LYMPHOCYTES # (AUTO) 1.4 /CMM (0.8-4.8); LYMPHOCYTES % (AUTO) 13.9 % (20.0-44.0); MEAN CORPUSCULAR HGB CONC 33 g/dl (31.0-36.0); MEAN CORPUSCULAR VOLUME 85 fL (82-100); MONOCYTES # (AUTO) 0.6 /CMM (0.1-1.30); MONOCYTES % (AUTO) 6.1 % (2.0-12.0); NEUTROPHILS # (AUTO) 7.8 /CMM (1.8-8.9); NEUTROPHILS % (AUTO) 77.3 % (43.0-81.0); PLATELET COUNT (AUTO) 409 /CMM (150-450); RED BLOOD CELL COUNT(AUTO) 3.22 MIL/uL (4.0-5.2); WHITE BLOOD COUNT (AUTO) 10.1 K/uL (4.3-11.0)
[2018-08-12 07:24] LABS: CALCIUM, SERUM 8.1 mg/dL (8.5-10.1); CARBON DIOXIDE 30 mmol/L (21-32); CHLORIDE 101 mmol/L (98-107); CREATININE 0.8 mg/dL (0.6-1.3); GLUCOSE 200 mg/dL (74-106); MAGNESIUM 1.6 mg/dL (1.8-2.4); PHOSPHORUS 3.4 mg/dL (2.5-4.9); POTASSIUM 3.5 mmol/L (3.5-5.1); SODIUM SERUM 136 mmol/L (136-145); UREA NITROGEN, BLOOD 9 mg/dL (7-18)
[2018-08-12 08:00] VITALS: BP 160/77
[2018-08-12] MEDS: LEVOTHYROXINE SODIUM 100 MCG TABLET PO SCH (08:01)
[2018-08-12 08:34] LABS: EOSINOPHILS % (MANUAL) 2 % (0-4); LYMPHOCYTES % (MANUAL) 15 % (16-48); MONOCYTES % (MANUAL) 4 % (0-11.0); NEUTROPHILS % (MANUAL) 79 (42-76)
[2018-08-12] MEDS: LACTOBACILLUS RHAMNOSUS GG 1 EACH CAP.SPRINK PO SCH ×2 (08:48→16:50)
[2018-08-12] MEDS: DAKINS QUARTER STRENGTH (0.125%) 480 ML BOTTLE TOP SCH (08:52)
[2018-08-12] MEDS: Magnesium 1GM/D5W 100ML PREMIX 100 ML IV SCH ×2 (11:50→13:06)
[2018-08-12 16:00] VITALS: BP 129/66
--- NOTE | 2018-08-12 18:37 | NUR ---
MS RN CLOSING NOTES PT IS ON BED WITH ROOM AIR,TOLERATING WELL.IV FLUID IS RUNNING.SITE IS CLEAN DRY AND INTACT.ALL DUE MEDS ARE GIVEN.RESPIRATION IS EVEN AND NONLABORED.ENDORSED TO BOWLING FLOOR MANAGER RN FOR VIOLETA.
[2018-08-12 20:00] VITALS: BP 96/62
[2018-08-12 21:00] VITALS: BP 96/62
[2018-08-12] MEDS: IV NS 0.9% 1,000 ML IV PRN (22:15)
--- NOTE | 2018-08-12 22:30 | NUR ---
RN NOTES, endorsed patient in stable condition for continuation of care to BRENT oliver.
--- NOTE | 2018-08-12 22:30 | NUR ---
RECEIVED REPORT FROM DELLA KENNEDY,. PT STABLE AND COMFORTABLE, WILL CONTINUE CARE.
[2018-08-12] MEDS: VANCOMYCIN 1 GM in IV D5W 250 ML IV SCH (22:51)
[2018-08-13 06:00] VITALS: BP 137/67
--- NOTE | 2018-08-13 06:20 | NUR ---
RN MS CLOSING NOTES PT REMAINS IN BED, SLEEPING, EASILY AROUSED TO NAME CALL, BREATHING EVEN AND UNLABORED ON ROOM AIR, NO SOB. NO COMPLAINT OF PAIN OR DISCOMFORT AT THIS TIME. R FA 20G, WITH NS 72ML/HR. SACRAL DRESSING CHANGED, WOUND PACKED. BED IN LOWEST LOCKED POSITION, CALL LIGHT WITHIN REACH AT ALL TIMES, WILL ENDORSE TO DAY NURSE FOR VIOLETA
[2018-08-13] MEDS: BLOOD SUGAR DIAGNOSTIC 1 EACH STRIP IN SCH ×4 (06:33→21:09)
[2018-08-13] MEDS: INSULIN REGULAR, HUMAN 100 UNIT/ML 3 ML VIAL SQ PRN ×4 (06:35→21:33)
[2018-08-13 06:50] LABS: BASOPHILS % (AUTO) 0.3 % (0.0-2.0); EOSINOPHILS % (AUTO) 2.5 % (0.0-6.0); HEMATOCRIT 27 % (33-45); HEMOGLOBIN 8.9 g/dL (11.5-14.8); LYMPHOCYTES # (AUTO) 1.7 /CMM (0.8-4.8); LYMPHOCYTES % (AUTO) 15.9 % (20.0-44.0); MEAN CORPUSCULAR HGB CONC 33 g/dl (31.0-36.0); MEAN CORPUSCULAR VOLUME 86 fL (82-100); MONOCYTES # (AUTO) 0.7 /CMM (0.1-1.30); MONOCYTES % (AUTO) 6.3 % (2.0-12.0); NEUTROPHILS # (AUTO) 7.8 /CMM (1.8-8.9); PLATELET COUNT (AUTO) 451 /CMM (150-450); WHITE BLOOD COUNT (AUTO) 10.4 K/uL (4.3-11.0)
[2018-08-13 06:56] LABS: CALCIUM, SERUM 7.9 mg/dL (8.5-10.1); CARBON DIOXIDE 30 mmol/L (21-32); CHLORIDE 103 mmol/L (98-107); CREATININE 0.7 mg/dL (0.6-1.3); GLUCOSE 169 mg/dL (74-106); MAGNESIUM 1.7 mg/dL (1.8-2.4); PHOSPHORUS 3.4 mg/dL (2.5-4.9); POTASSIUM 3.5 mmol/L (3.5-5.1); SODIUM SERUM 139 mmol/L (136-145); UREA NITROGEN, BLOOD 10 mg/dL (7-18)
[2018-08-13 08:00] VITALS: BP 163/75
--- NOTE | 2018-08-13 08:17 | NUR ---
RN MS OPENING NOTES PT RECEIVED IN BED, SLEEPING, EASILY AROUSED TO NAME CALL, A/O X 3, NO SOB OR ACUTE DISTRESS NOTED. ON ROOM AIR, R FA 20G INTACT AND PATENT WITH NS INFUSING @ 75ML/HR. SACRAL DRESSING CHANGED, WOUND PACKED OVERNIGHT. BED IN LOWEST LOCKED POSITION, CALL LIGHT WITHIN REACH AT ALL TIMES, WILL CONTINUE TO MONITOR.
[2018-08-13] MEDS: LEVOTHYROXINE SODIUM 100 MCG TABLET PO SCH (08:43)
[2018-08-13] MEDS: DAKINS QUARTER STRENGTH (0.125%) 480 ML BOTTLE TOP SCH (08:43)
[2018-08-13] MEDS: LACTOBACILLUS RHAMNOSUS GG 1 EACH CAP.SPRINK PO SCH ×2 (08:43→16:29)
[2018-08-13 09:08] LABS: EOSINOPHILS % (MANUAL) 3 % (0-4); LYMPHOCYTES % (MANUAL) 13 % (16-48); MONOCYTES % (MANUAL) 5 % (0-11.0); NEUTROPHILS % (MANUAL) 79 (42-76)
[2018-08-13] MEDS: Magnesium 1GM/D5W 100ML PREMIX 100 ML IV SCH ×2 (09:52→11:39)
[2018-08-13] MEDS: IV NS 0.9% 1,000 ML IV PRN (14:40)
[2018-08-13 16:00] VITALS: BP 134/60
[2018-08-13] MEDS ORDERED: VANCOMYCIN 1 GM in IV D5W 250 ML IV SCH (16:00)
--- NOTE | 2018-08-13 19:45 | NUR ---
MS RN NOTE PATIENT RECEIVED FAMILY AT BEDSIDE PATIENT A/O X3. CARE PLAN AND GOALS DISCUSSED WITH THE FAMILY. PATIENT HAS NO S/S OF DISTRESS. RN WILL GIVEN CARES ORDERED. RN WILL CONTINUE TO MONITOR SAFETY PRECAUTIONS IN PLACE.
--- NOTE | 2018-08-13 19:45 | NUR ---
RN MS CLOSING NOTES RECEIVED IN BED W/ FAMILY AT BEDSIDE. A/O X 3, NO SOB OR ACUTE DISTRESS NOTED. ON ROOM AIR, RFA 20G INTACT AND PATENT WITH NS INFUSING @ 75ML/HR. BED IN LOWEST LOCKED POSITION, CALL LIGHT WITHIN REACH AT ALL TIMES. CARE ENDORSED TO CASE COORDINATOR RN.
[2018-08-13 19:51] VITALS: BP 96/62
[2018-08-13 21:00] VITALS: BP 96/62
[2018-08-13] MEDS: CEFAZOLIN 1 GM in IV NS 0.9% 50 ML IV SCH (21:09)
[2018-08-14 04:00] VITALS: BP 97/62
[2018-08-14 05:00] VITALS: BP 97/62
[2018-08-14] MEDS: CEFAZOLIN 1 GM in IV NS 0.9% 50 ML IV SCH ×3 (05:19→20:07)
--- NOTE | 2018-08-14 05:30 | NUR ---
MS RN NOTE WOUND CARE, BED BATH AND LINEN CHANGE GIVEN.
[2018-08-14] MEDS: LEVOTHYROXINE SODIUM 100 MCG TABLET PO SCH (07:00)
[2018-08-14 07:08] LABS: CALCIUM, SERUM 8.2 mg/dL (8.5-10.1); CARBON DIOXIDE 28 mmol/L (21-32); CHLORIDE 104 mmol/L (98-107); CREATININE 0.7 mg/dL (0.6-1.3); GLUCOSE 144 mg/dL (74-106); POTASSIUM 3.7 mmol/L (3.5-5.1); SODIUM SERUM 139 mmol/L (136-145); UREA NITROGEN, BLOOD 12 mg/dL (7-18)
--- NOTE | 2018-08-14 07:35 | NUR ---
MS RN NOTE PATIENT TOLERATED THE NIGHT WELL NO ACUTE CHANGES RN FLAKITO ENDORSE POC TO AM FOR VIOLETA.
[2018-08-14 08:00] VITALS: BP 91/56
[2018-08-14] MEDS: INSULIN REGULAR, HUMAN 100 UNIT/ML 3 ML VIAL SQ PRN ×4 (08:02→22:00)
[2018-08-14] MEDS: BLOOD SUGAR DIAGNOSTIC 1 EACH STRIP IN SCH ×4 (08:03→21:27)
--- NOTE | 2018-08-14 08:47 | NUR ---
RN MS OPENING NOTES RECEIVED IN BED AWAKE A/O X 3. NO SOB OR ACUTE DISTRESS NOTED. ON ROOM AIR, RFA 20G INTACT AND PATENT WITH NS INFUSING @ 75ML/HR. WOUND CARE COMPLETED OVERNIGHT. BED IN LOWEST LOCKED POSITION, CALL LIGHT WITHIN REACH AT ALL TIMES. WILL CONTINUE TO MONITOR
[2018-08-14] MEDS: LACTOBACILLUS RHAMNOSUS GG 1 EACH CAP.SPRINK PO SCH ×2 (09:33→17:48)
[2018-08-14] MEDS: DAKINS QUARTER STRENGTH (0.125%) 480 ML BOTTLE TOP SCH (09:34)
[2018-08-14] MEDS: IV NS 0.9% 1,000 ML IV PRN (09:51)
[2018-08-14 16:00] VITALS: BP 108/70
--- NOTE | 2018-08-14 17:10 | NUR ---
WOUND CARE COMPLETED ORDERED.
--- NOTE | 2018-08-14 19:24 | NUR ---
MS RN CLOSING NOTES PATEINT IN BED AWAKE A/O X 3 WITH DAUGHTER AT BEDSIDE. NO SOB OR ACUTE DISTRESS NOTED. ON ROOM AIR, RFA 20G INTACT AND PATENT WITH NS INFUSING @ 75ML/HR. WOUND CARE COMPLETED ORDERED. BED IN LOWEST LOCKED POSITION, CALL LIGHT WITHIN REACH AT ALL TIMES. CARE ENDORSED TO NIGHR SHIFT RN.
--- NOTE | 2018-08-14 19:25 | NUR ---
MS RN OPENING NOTES PATIENT IN BED AWAKE, A/OX2, FORGETFUL. WITH FAMILY AT BEDSIDE. ON ROOM AIR, NO SOB OR ACUTE DISTRESS NOTED, RR EVEN AND UNLABORED. DENIES ANY PAIN AT THIS TIME. RFA 20G INTACT AND PATENT WITH NS INFUSING @ 75ML/HR, NO INFILTRATION NOTED. ARMENDARIZ CATH OFF THE FLOOR, DRAINING WELL. SAFETY MEASURES MAINTAINED; BED LOCKED AND IN LOWEST POSITION, CALL LIGHT WITHIN REACH. WILL CONT TO MONITOR PT.
[2018-08-14 20:00] VITALS: BP 110/59
[2018-08-14 20:56] VITALS: BP 110/59
[2018-08-15 04:00] VITALS: BP 128/69
[2018-08-15] MEDS: IV NS 0.9% 1,000 ML IV PRN (04:30)
[2018-08-15] MEDS: CEFAZOLIN 1 GM in IV NS 0.9% 50 ML IV SCH ×2 (04:32→12:45)
[2018-08-15 07:14] LABS: BASOPHILS % (AUTO) 0.4 % (0.0-2.0); EOSINOPHILS % (AUTO) 2.4 % (0.0-6.0); HEMATOCRIT 26 % (33-45); HEMOGLOBIN 8.6 g/dL (11.5-14.8); LYMPHOCYTES # (AUTO) 1.4 /CMM (0.8-4.8); LYMPHOCYTES % (AUTO) 14.7 % (20.0-44.0); MEAN CORPUSCULAR HGB CONC 33 g/dl (31.0-36.0); MEAN CORPUSCULAR VOLUME 86 fL (82-100); MONOCYTES # (AUTO) 0.5 /CMM (0.1-1.30); MONOCYTES % (AUTO) 5.8 % (2.0-12.0); NEUTROPHILS # (AUTO) 7.3 /CMM (1.8-8.9); NEUTROPHILS % (AUTO) 76.7 % (43.0-81.0); PLATELET COUNT (AUTO) 476 /CMM (150-450); RED BLOOD CELL COUNT(AUTO) 3.06 MIL/uL (4.0-5.2); WHITE BLOOD COUNT (AUTO) 9.5 K/uL (4.3-11.0)
--- NOTE | 2018-08-15 07:40 | NUR ---
MS RN CLOSING NOTES NO ACUTE CHANGES THROUGHOUT SHIFT. WOUND TX DONE ORDERED. REPOSITIONED Q2H. ALL MD ORDERS ATTENDED. ALL NEEDS ANTICIPATED AND MET. SAFETY MEASURES MAINTAINED. ENDORSED TO AM SHIFT FOR VIOLETA.
[2018-08-15 07:43] LABS: CALCIUM, SERUM 8.3 mg/dL (8.5-10.1); CARBON DIOXIDE 28 mmol/L (21-32); CHLORIDE 106 mmol/L (98-107); CREATININE 0.7 mg/dL (0.6-1.3); GLUCOSE 147 mg/dL (74-106); MAGNESIUM 1.5 mg/dL (1.8-2.4); PHOSPHORUS 3.2 mg/dL (2.5-4.9); SODIUM SERUM 140 mmol/L (136-145); UREA NITROGEN, BLOOD 11 mg/dL (7-18)
[2018-08-15] MEDS: LEVOTHYROXINE SODIUM 100 MCG TABLET PO SCH (07:47)
[2018-08-15] MEDS: BLOOD SUGAR DIAGNOSTIC 1 EACH STRIP IN SCH ×3 (07:47→18:19)
[2018-08-15 08:00] VITALS: BP 121/54
[2018-08-15] MEDS: INSULIN REGULAR, HUMAN 100 UNIT/ML 3 ML VIAL SQ PRN ×2 (08:03→12:30)
[2018-08-15] MEDS ORDERED: FLUC200T PO (10:37)
[2018-08-15] MEDS ORDERED: CEPH-570 PO ×2 (10:37→10:44)
[2018-08-15] MEDS: Magnesium 1GM/D5W 100ML PREMIX 100 ML IV SCH ×2 (11:40→12:30)
[2018-08-15] MEDS: LACTOBACILLUS RHAMNOSUS GG 1 EACH CAP.SPRINK PO SCH ×2 (11:40→17:00)
[2018-08-15 16:00] VITALS: BP_SYST 113; BP_SYST 153; BP_DIAS 58; BP_DIAS 74
[2018-08-15] MEDS: DAKINS QUARTER STRENGTH (0.125%) 480 ML BOTTLE TOP SCH (17:00)
--- NOTE | 2018-08-15 18:45 | NUR ---
RN D/C NOTE PATIENT D/C TO HOME WITH HOME HEALTH, [facility] AND WOUND [facility]IN[facility], INFO PROVIDED. PATIENT STABLE. WOUND CARE COMPLETED, FAMILY EDUCATED ON HOW TO PERFORM WOUND TREATMENT. WOUND PICTURES TAKEN AND PLACED IN CHART. SUPPLIES PROVIDED, PER CASE MANAGEMENT. PRESCRIPTIONS PROVIDED TO DAUGHTERRINA. MEDICATION LIST REVIEWED, SIDE EFFECTS AND EMERGENCY SYMPTOMS DISCUSSED. DAUGHTER VERBALIZES UNDERSTANDING. PER LUCAS PEREZ CONTACT CENTRE SUPERVISOR, ARMENDARIZ TO REMAIN IN. ARMENDARIZ CARE EDUCATION PROVIDED TO DAUGHTER RINA. PATIENT WHEELED OUT VIA WHEELCHAIR @2791.
== END 2018-08-15 18:40 | disposition home health service (06) | DRG 853 ==
LOC: ER 18:33 → TELE1 20:59 → MEDSG1 08-08 09:50
PROVIDERS: ADMIT Nurse Practitioner Acute Care; ATTEND Nurse Practitioner Acute Care
PROC: 0U9MXZZ Drainage of Vulva, External Approach (ICD-10-PCS; principal; 2018-08-08)
PROC: 0JBB0ZZ Excision of Perineum Subcutaneous Tissue and Fascia, Open Approach (ICD-10-PCS; principal; 2018-08-08)
PROC: 0J9B3ZZ Drainage of Perineum Subcutaneous Tissue and Fascia, Percutaneous Approach (ICD-10-PCS; principal; 2018-08-08)
DX: A41.9 Sepsis, unspecified organism (principal); G93.41 Metabolic encephalopathy; E43 Unspecified severe protein-calorie malnutrition; N17.0 Acute kidney failure with tubular necrosis; L03.317 Cellulitis of buttock; E87.1 Hypo-osmolality and hyponatremia; N39.0 Urinary tract infection, site not specified; L03.315 Cellulitis of perineum; N76.4 Abscess of vulva; L02.215 Cutaneous abscess of perineum; K61.2 Anorectal abscess; E09.649 Drug or chemical induced diabetes mellitus with hypoglycemia without coma; T38.3X5A Adverse effect of insulin and oral hypoglycemic [antidiabetic] drugs, initial encounter; Y92.009 Unspecified place in unspecified non-institutional (private) residence as the place of occurrence of the external cause; I12.9 Hypertensive chronic kidney disease with stage 1 through stage 4 chronic kidney disease, or unspecified chronic kidney disease; N18.9 Chronic kidney disease, unspecified; E03.9 Hypothyroidism, unspecified; E83.39 Other disorders of phosphorus metabolism; E83.42 Hypomagnesemia; E87.6 Hypokalemia; R65.20 Severe sepsis without septic shock; I25.10 Atherosclerotic heart disease of native coronary artery without angina pectoris; F03.90 Unspecified dementia, unspecified severity, without behavioral disturbance, psychotic disturbance, mood disturbance, and anxiety; Z79.84 Long term (current) use of oral hypoglycemic drugs; E88.09 Other disorders of plasma-protein metabolism, not elsewhere classified; R53.1 Weakness; Z68.20 Body mass index [BMI] 20.0-20.9, adult; E86.1 Hypovolemia; D63.8 Anemia in other chronic diseases classified elsewhere; Z83.3 Family history of diabetes mellitus; E11.22 Type 2 diabetes mellitus with diabetic chronic kidney disease
CPT/HCPCS: 36415; 71045-TC; 80048-TC; 80053-TC; 80061-TC; 80076-TC; 80202-TC; 81000-TC; 82962-TC; 83605-TC; 83690-TC; 83735-TC; 84100-TC; 84443-TC; 84484-TC; 85025-TC; 85652-TC; 85730-TC; 87040-TC; 87070-TC; 87081-TC; 87086-TC; 88304-TC; 88312-TC; 97110-TC; 97116-TC; 97530-TC; A4216; A4217; A6253; A6402; A6403; G0378; J0330; J0690; J1100; J1170; J1815; J2405; J2543; J2704; J3370; J3475; J3490; J7030; J7040; J7042; J7050; J7060; J8597

== ENCOUNTER 2021-07-19 10:43 | Emergency (ER) | payer BC, MEDICAID ==
[~2021-07-19] VITALS: Ht 127 cm; Wt 52.6 kg
[~2021-07-19 10:43] MED LIST: CEPH-570 PO; FLUC200T PO; GLIP10TA11 PO; HYDR-4384 PO; LEVO100T9 PO; LISI40TA13 PO; METF-442 PO; ONDA4TAB5 PO
[2021-07-19 11:04] VITALS: BP 99/60
[2021-07-19] MEDS ORDERED: MUPI22OI2 TP ×2 (11:57→12:16)
[2021-07-19] MEDS ORDERED: CEPH500C2 PO ×2 (11:57→12:16)
--- NOTE | 2021-07-19 12:25 | NUR ---
Patient discharged to home in stable condition. Written and verbal after care instructions given. Patient verbalizes understanding of instruction.
== END 2021-07-19 12:26 | disposition home or self-care (01) ==
LOC: ER 10:50
DX: L30.9 Dermatitis, unspecified (principal); I10 Essential (primary) hypertension; E11.9 Type 2 diabetes mellitus without complications; Z79.899 Other long term (current) drug therapy

== ENCOUNTER 2021-10-06 16:30 | Emergency (ER) | payer BC ==
[~2021-10-06] VITALS: Ht 152.4 cm; Wt 63.5 kg
[~2021-10-06 16:30] MED LIST changes: +CEPH500C2 PO; +MUPI22OI2 TP
[2021-10-06 16:33] VITALS: BP 103/61
[2021-10-06] MEDS ORDERED: CEPH500C2 PO (17:04)
[2021-10-06] MEDS ORDERED: SULF1TAB48 PO (17:04)
== END 2021-10-06 18:00 | disposition home or self-care (01) ==
LOC: ER 16:45
DX: L60.0 Ingrowing nail (principal); L08.9 Local infection of the skin and subcutaneous tissue, unspecified; I10 Essential (primary) hypertension; E11.9 Type 2 diabetes mellitus without complications; Z79.899 Other long term (current) drug therapy; Z79.84 Long term (current) use of oral hypoglycemic drugs

== ENCOUNTER 2022-03-02 21:59 | Emergency (ER) | payer BC ==
[~2022-03-02] VITALS: Ht 152.4 cm; Wt 59.0 kg
[~2022-03-02 21:59] MED LIST changes: +SULF1TAB48 PO
--- NOTE | 2022-03-02 22:32 | NUR ---
BIBDAUGHTER FROM HOME C/O VOMITING, DIZZINESS, H/A X1DAY. PT A/OX4. TOLERATING R/A WELL WITH NO RESP DISTRESS. CONNECTED PT TO POX AND MONITOR. SAFETY MEASURES IN PLACE.
[2022-03-02] MEDS ORDERED: ONDANSETRON HCL/PF 4 MG/2 ML VIAL IVP ONE (23:00)
[2022-03-02] MEDS ORDERED: MECLIZINE HCL 12.5 MG TABLET PO ONE (23:00)
[2022-03-02] MEDS ORDERED: ONDANSETRON HCL/PF 4 MG/2 ML VIAL ONE (23:07)
[2022-03-02] MEDS ORDERED: MECLIZINE HCL 25 MG TABLET ONE (23:08)
[2022-03-02 23:23] LABS: BASOPHILS % (AUTO) 0.3 % (0.0-2.0); EOSINOPHILS % (AUTO) 1.7 % (0.0-6.0); HEMATOCRIT 28 % (33-45); HEMOGLOBIN 8.6 g/dL (11.5-14.8); LYMPHOCYTES # (AUTO) 1.1 K/uL (0.8-4.8); LYMPHOCYTES % (AUTO) 13.2 % (20.0-44.0); MEAN CORPUSCULAR HGB CONC 30 g/dl (31.0-36.0); MEAN CORPUSCULAR VOLUME 82 fL (82-100); MONOCYTES # (AUTO) 0.6 K/uL (0.1-1.30); MONOCYTES % (AUTO) 7.1 % (2.0-12.0); NEUTROPHILS # (AUTO) 6.7 K/uL (1.8-8.9); NEUTROPHILS % (AUTO) 77.7 % (43.0-81.0); PLATELET COUNT (AUTO) 331 K/uL (150-450); RED BLOOD CELL COUNT(AUTO) 3.46 MIL/uL (4.0-5.2); WHITE BLOOD COUNT (AUTO) 8.6 K/uL (4.3-11.0)
--- NOTE | 2022-03-02 23:25 | NUR ---
URINE COLLECTED AND SENT TO LAB
--- NOTE | 2022-03-02 23:35 | NUR ---
PT TAKEN TO CT VIA LUIS
[2022-03-02 23:43] LABS: ALANINE AMINOTRANSFERASE 13 U/L (12-78); ALBUMIN 3.6 g/dL (3.4-5.0); ALKALINE PHOSPHATASE 73 U/L (46-116); ASPARTATE AMINOTRANSFERASE 14 U/L (15-37); BILIRUBIN,DIRECT 0.1 mg/dL (0.0-0.2); BILIRUBIN,TOTAL 0.3 mg/dL (0.2-1.0); CALCIUM, SERUM 9.5 mg/dL (8.5-10.1); CARBON DIOXIDE 28 mmol/L (21-32); CHLORIDE 102 mmol/L (98-107); GLUCOSE 157 mg/dL (74-106); POTASSIUM 4.7 mmol/L (3.5-5.1); SODIUM SERUM 138 mmol/L (136-145); TOTAL PROTEIN, SERUM 6.9 g/dL (6.4-8.2); UREA NITROGEN, BLOOD 35 mg/dL (7-18)
[2022-03-02 23:56] LABS: BILIRUBIN,URINE NEGATIVE (NEGATIVE); COLOR,URINE YELLOW (YELLOW); LEUKOCYTE ESTERASE ,URINE TRACE (NEGATIVE); NITRITE, URINE NEGATIVE (NEGATIVE); PH,URINE 5.5 (5.0-8.0); PROTEIN,URINE NEGATIVE (NEGATIVE); UGLUCOSE NEGATIVE (NEGATIVE); UROBILINOGEN,URINE 0.2 EU/dL (0.2)
[2022-03-02 23:58] LABS: BACTERIA,URINE Rare /HPF (None Seen); RBC,URINE 0-2 /HPF (0-2); SQUAMOUS EPITHELIAL CELL,UR Few /HPF (None Seen)
[2022-03-03] MEDS ORDERED: MECL-182 PO (01:59)
--- NOTE | 2022-03-03 02:06 | NUR ---
IV removed. Catheter intact and site benign. Pressure and 4x4 applied to site. No bleeding noted.Patient discharged to home in stable condition. Written and verbal after care instructions given. Patient verbalizes understanding of instruction.
[2022-03-03 02:07] VITALS: BP 132/76
== END 2022-03-03 02:07 | disposition home or self-care (01) ==
LOC: ER 22:11
DX: R42 Dizziness and giddiness (principal); I10 Essential (primary) hypertension; E78.00 Pure hypercholesterolemia, unspecified; E11.9 Type 2 diabetes mellitus without complications; E03.9 Hypothyroidism, unspecified; Z79.899 Other long term (current) drug therapy
CPT/HCPCS: 99285; 96374; 70450; 71045; 93005; 85025; 80048; 80076; 81001; 36415 ×2; 84484 ×2; 85730; J8597; J2405

== ENCOUNTER 2022-06-18 10:30 | Emergency (ER) | payer BC ==
[~2022-06-18] VITALS: Ht 152.4 cm; Wt 51.7 kg
[~2022-06-18 10:30] MED LIST changes: +MECL-182 PO
--- NOTE | 2022-06-18 10:30 | NUR ---
BIBS FOR INFECTION. A/O X 3, ABLE TO MAKE NEEDS KNOWN, TOLERATING WELL ON ROOM AIR.
[2022-06-18 10:45] VITALS: BP 98/52
--- NOTE | 2022-06-18 10:52 | NUR ---
URINE SAMPLE COLLECTED AND SENT TO LAB
[2022-06-18] MEDS ORDERED: SULF1TAB48 PO (11:00)
--- NOTE | 2022-06-18 11:08 | NUR ---
Patient discharged to home in stable condition. Written and verbal after care instructions given. Patient verbalizes understanding of instruction.
== END 2022-06-18 11:10 | disposition home or self-care (01) ==
LOC: ER 10:30
DX: N75.1 Abscess of Bartholin's gland (principal); I10 Essential (primary) hypertension; E78.00 Pure hypercholesterolemia, unspecified; E11.9 Type 2 diabetes mellitus without complications; E03.9 Hypothyroidism, unspecified; F03.90 Unspecified dementia, unspecified severity, without behavioral disturbance, psychotic disturbance, mood disturbance, and anxiety; Z79.899 Other long term (current) drug therapy

== ENCOUNTER 2023-06-14 15:08 | Emergency (ER) | payer BC ==
[~2023-06-14] VITALS: Ht 157.5 cm; Wt 59.0 kg
[2023-06-14 15:33] VITALS: TEMP 97.9
[2023-06-14 17:22] VITALS: BP 98/60; O2SAT 99
== END 2023-06-14 17:23 | disposition home or self-care (01) ==
LOC: ER 15:10
DX: M25.572 Pain in left ankle and joints of left foot (principal); I10 Essential (primary) hypertension; E11.9 Type 2 diabetes mellitus without complications; F03.90 Unspecified dementia, unspecified severity, without behavioral disturbance, psychotic disturbance, mood disturbance, and anxiety; E05.90 Thyrotoxicosis, unspecified without thyrotoxic crisis or storm; Z98.890 Other specified postprocedural states
CPT/HCPCS: 73610-TC